=== PATIENT | male | born 1960 | race African-American/Black ===

== ENCOUNTER 2022-08-03 16:35 | Observation (INO) | payer OTHER ==
[2022-08-03] MEDS ORDERED: ONDANSETRON 4 MG/2 ML VIAL ONE (17:15)
[2022-08-03] MEDS ORDERED: MORPHINE 4 MG/ML SYR ONE ×2 (17:15→18:31)
--- NOTE | 2022-08-03 17:15 | RAD REPORT ---
EXAM DESCRIPTION: RAD - Chest Single View - 08/03/2022 5:10 pm CLINICAL HISTORY: CHEST PAIN Chest pain. COMPARISON: No comparisons FINDINGS: Portable technique limits examination quality. Mild interstitial pulmonary edema. The heart is mildly enlarged in size. No displaced fractures. IMPRESSION: Mild CHF.
--- OUTSIDE RECORDS SUMMARY | 2022-08-03 17:18 | XMS REPORT | Continuity of Care Document ---
:1960 Demographics Address [address] [place] [address] Email Address Preferred Language Unknown Marital Status Unknown Holiness Affiliation Unknown Race Unknown Additional Race(s) Unavailable Ethnic Group Unknown Author Organization [facility] t Address [address] [place] [address] [address] [place] [address] Care Team Providers Name Role Phone Unavailable Unavailable Unavailable Problems This patient has no known problems. Allergies, Adverse Reactions, Alerts This patient has no known allergies or adverse reactions. Medications This patient has no known medications. Procedures This patient has no known procedures. Results Test Description Test Time Test Comments Results Result Comments Source NOTE: 2022-01-23 06:02:55 Test Item Value Reference Range Interpretation Comme nts NOTE: (test code = 998) (NOTE) IN ACCORDANCE WITH FEDERAL GUIDELINES REQUIRING ALL VERBAL REQU ESTS FOR LABORATORY TESTS TO BE ACCOMPANIED BY WRITTEN AUTHORIZATION WITHIN 30 DAYS OF THIS RE QUEST, PLEASE SIGN BELOW AND RETURN A COPY OF THIS REPORT BY FAX TO THE LABORATORY SCANNING DEPART [facility] AT [phone]. PHYSICIAN'S SIGNATURE DATE UNLE SS OTHERWISE INDICATED, ALL TESTING PERFORMED [facility] [employer] [address] [place] [id number] MEDICAL SOCIAL WORKER: ARTIE UMANA M.D. CLIA NUMBER [id number] CAP ACCREDITATION N O. [id number] HEMOGLOBIN [id number] 21:50:32 Test Item Value Reference Range Interpretation Comments HEMOGLOBIN A1c (test 6.5 % 4.2-5.6 H AMERIC AN DIABETES code = 06491) ASSOCIATION IDELINES FOR HGB A1C: PREDIABETES/INC REASED RISK . . . . . . . 5.7 -6.4% DIAGNOSIS OF DI ABETES . . . . . . . . . >=6 .5% WITH CONFIRMATION OR APPROPRIATE SYMPTOMS NOTE: ASSAY MAY BE AFFECTED BY HEMOGLOBINOPATH IES (SICKLE CELL ANEMIA, S- C DISEASE, OTHERS) OR FOSTER FICIALLY LOWERED BY DECR EASED RED CELL SURVIVAL ( HEMOLYTIC ANEMIAS, BLOOD LOSS, ETC.). CONSIDER ALTERN ATE TESTING OR LABORATORY C ONSULTATION. CBC W/AUTO DIFF WITH [id number] 05:19:50 Test Item Value Reference Range Interpretation Comments WBC (test code = 6.0 K/UL 3.5-11.0 1001) RBC (test code = 4.52 M/UL 4.50-6.10 1002) HEMOGLOBIN (test code 14.0 G/DL 13.5-17.0 = 1003) HEMATOCRIT (test code 39.4 % 40.0-51.0 L = 1004) MCV (test code = 87.2 fL 80.0-99.0 1005) MCH (test code = 31.0 PG 25.0-33.0 1006) MCHC (test code = 35.5 G/DL 31.0-36.0 1007) RDW (test code = 12.9 % 11.5-15.0 1038) NEUTROPHILS (test 50.5 % code = 1008) LYMPHOCYTES (test 34.5 % code = 1010) MONOCYTES (test code 10.0 % = 1011) EOSINOPHILS (test 4.1 % code = 1012) BASOPHILS (test code 0.7 % = 1013) IMMATURE GRANULOCYTES 0.2 % (test code = 1036) NUCLEATED RBCS (test 0.0 /100 WBC'S See_Comment [Aut omated code = 1065) message] The sy stem which generated this result transmitted reference range : 0.0. The refere nce range was not u sed to interpret th is result as normal/abnormal . PLATELET COUNT (test 234 K/UL 130-400 code = 1015) ABSOLUTE NEUTROPHILS 3.05 K/UL 1.50-7.50 (test code = 1066) ABSOLUTE LYMPHOCYTES 2.08 K/UL 1.00-4.00 (test code = 1067) ABSOLUTE MONOCYTES 0.60 K/UL 0.20-1.00 (test code = 1068) ABSOLUTE EOSINOPHILS 0.25 K/UL 0.00-0.50 (test code = 1040) ABSOLUTE BASOPHILS 0.04 K/UL 0.00-0.20 (test code = 1069) ABS IMMATURE 0.01 K/UL 0.00-0.10 GRANULOCYTES (test code = 1020) ABS NUCLEATED RBCS 0.00 K/UL 0.00-0.11 (test code = 62137) ALBUMIN/CREATININE RATIO, URINE, [id number] 04:35:12 Test Item Value Reference Range Interpretation Comments CREATININE, URINE, 128.5 MG/DL NOT ESTAB RANDOM (test code = 2072) ALBUMIN, URINE, 2.8 MG/DL NOT ESTAB RANDOM (test code = 81648) CALC 22 MG/G <30 Note: ALBUMIN/CREAT, RND Albumin/C reatinine ratio (test code = reference inter xavi 86861) reflects ADA an d NKF guidelines. UNL ESS OTHERWISE INDIC ATED, ALL TESTING PERFORM ED ATCLINICAL PATH [facility] LAB[facility]ATORIES, [facility]. [address] [place] [id number] LABORATORY DIR JOANN: ARTIE UMANA M.D. CLIA NUMBER [id number] [place] [id number] COMPREHENSIVE METABOLIC [id number] 03:21:59 Test Item Value Reference Range Interpretation Comments GLUCOSE (test code = 106 MG/DL 70-99 H 2216) BUN (test code = 20 MG/DL 8-23 2207) CREATININE (test 0.90 MG/DL 0.80-1.40 code = 2214) eGFR (2020 CKD-EPI) 96 ML/MIN/1.73 >60 (test code = 69685) CALC BUN/CREAT (test 22 RATIO 6-28 code = 2235) SODIUM (test code = 142 MEQ/L 291-295 8257) POTASSIUM (test code 4.4 MEQ/L 3.5-5.4 = 2227) CHLORIDE (test code 105 MEQ/L 95-107 = 2215) CARBON DIOXIDE (test 22 MEQ/L 19-31 code = 2206) CALCIUM (test code = 9.6 MG/DL 8.5-10.5 2208) PROTEIN, TOTAL (test 7.4 G/DL 6.1-8.3 code = 2229) ALBUMIN (test code = 4.3 G/DL 3.5-5.2 2200) CALC GLOBULIN (test 3.1 G/DL 1.9-3.7 code = 2240) CALC A/G RATIO (test 1.4 RATIO 1.0-2.6 code = 2234) BILIRUBIN, TOTAL <0.2 MG/DL See_Comment [Automated message] (test code = 220) The syste m which generated this result transmit joann reference range : <=1.2. The refe rence range was not u sed to interpret th is result as normal/abnormal . ALKALINE PHOSPHATASE 63 U/L 40-123 (test code = 2203) AST (test code = 27 U/L 9-50 2217) ALT (test code = 22 U/L 5-50 2218) LIPID [id number] 03:21:59 Test Item Value Reference Range Interpretation Comments CHOLESTEROL (test 207 MG/DL <200 H code = 2210) TRIGLYCERIDES (test 113 MG/DL <150 code = 2232) HDL CHOLESTEROL (test 39 MG/DL >39 L code = 2220) CALC LDL CHOL (test 145 MG/DL <100 H NOTE: C ALCULATED LDL code = 2237) IS BASED ON TY-SMITH METHOD WHICHINCLUDES ADJUSTABLE TRIGLYCERIDE:VL DL CHOLESTEROL RAT IO.THIS FACTOR VARIES B Y MEASURED TRIGLY CERIDE AND NON-HDLCHOL ESTEROL CONCENTRATIONS WITH INCREASED CALCU LATED LDL SEENIN HIGH ER TRIGLYCERIDE OR LOWER NON-HDL SPECIME NS. FOR MOREINFORMATION , SEE CLIENT ANNOUNCE MENT AT [email or web address] RISK RATIO LDL/HDL 3.72 RATIO <3.55 H (test code = 223)
[2022-08-03 17:55] LABS: Absolute Lymphocytes (CBC) 1.4 K/uL (0.7-4.9); Hematocrit 39.7 % (39.6-49.0); Lymphocytes % 11.7 % (15.3-44.8); MPV 8.2 fL (7.6-11.3); RBC Red Blood Cell Count 4.46 M/uL (4.33-5.43)
[2022-08-03 18:15] LABS: Albumin 3.8 g/dL (3.4-5.0); Bilirubin Direct 0.1 mg/dL (0-0.2); Bilirubin Total 0.4 mg/dL (0.2-1.0); Magnesium 1.9 mg/dL (1.8-2.4); Potassium 3.7 mmol/L (3.5-5.1); Protein, Total 7.4 g/dL (6.4-8.2); Troponin High Sensitivity 11.4 pg/mL (<58.9)
--- NOTE | 2022-08-03 19:00 | EDPHYS ---
Physician Documentation [facility] Name: Aaron Apodaca Age: 61 yrs Sex: Male : 1960 Arrival Date: 08/03/2022 Time: 16:47 Bed 27 Private MD: ED Physician Stephanie Mackey HPI: 08/03 17:11 This 61 yrs old Black Male presents to ER via EMS with complaints of Chest Pain. kb 17:11 The patient or guardian reports chest pain that is located primarily in the substernal kb area. Onset: at 04:00. The pain does not radiate. Associated signs and symptoms: Pertinent positives: diaphoresis, shortness of breath. The chest pain is described as a pressure. Duration: The patient or guardian reports a single episode, that is still ongoing. Modifying factors: The symptoms are alleviated by nothing. the symptoms are aggravated by activity. Severity of pain: At its worst the pain was moderate in the emergency department the pain is unchanged. The patient has not experienced similar symptoms in the past. The patient has not recently seen a physician. Historical: - Allergies: 16:51 No Known Allergies; em6 - Home Meds: 16:51 None [Active]; em6 - PMHx: 16:51 None; em6 - PSHx: 16:51 None; em6 - Immunization history:: Adult Immunizations unknown. - Social history:: Smoking status: unknown. ROS: 17:10 Constitutional: Negative for fever, chills, and weight loss. kb 17:10 Cardiovascular: Positive for chest pain, Negative for edema, orthopnea, palpitations, paroxysmal nocturnal dyspnea. 17:10 Respiratory: Positive for shortness of breath. 17:10 All other systems are negative. Exam: 17:10 Head/Face: Normocephalic, atraumatic. ENT: Moist Mucous membranes Cardiovascular: kb Regular rate and rhythm with a normal S1 and S2. No gallops, murmurs, or rubs. No pulse deficits. Respiratory: Respirations even and unlabored. No increased work of breathing. Talking in full sentences Abdomen/GI: Soft, non-tender. No distention Skin: Warm, dry with normal turgor. Normal color. MS/ Extremity: Pulses equal, no cyanosis. Neurovascular intact. Full, normal range of motion. Neuro: Awake and alert, GCS 15, oriented to person, place, time, and situation. Moves all extremities. Normal gait. 17:10 Constitutional: The patient appears alert, awake, uncomfortable. 17:17 ECG was reviewed by the Attending Physician. kb Vital Signs: 16:45 BP 155 / 82; Pulse 79; Resp 20; Pulse Ox 100% on R/A; ld1 16:48 BP 168 / 82; Pulse 81; Resp 22; Temp 98.7; Pulse Ox 100% on 3 lpm NC; Weight 93.89 kg; em6 Height 6 ft. (182.88 cm); Pain 10/10; 17:15 BP 169 / 92; Pulse 82; Resp 24; Pulse Ox 98% on R/A; ld1 17:45 BP 179 / 99; Pulse 75; Resp 14; Pulse Ox 100% on R/A; ld1 18:30 BP 170 / 83; Pulse 90; Resp 14; Pulse Ox 100% on 2 lpm NC; em6 21:52 BP 174 / 95; Pulse 89; Resp 20; Pulse Ox 99% on 2 lpm NC; em6 16:48 Body Mass Index 28.07 (93.89 kg, 182.88 cm) em6 MDM: 16:51 Patient medically screened. kb 17:11 Data reviewed: vital signs, nurses notes. Data interpreted: Pulse oximetry: on room air kb is 100 %. Interpretation: normal. 18:59 Counseling: I had a detailed discussion with the patient and/or guardian regarding: the kb historical points, exam findings, and any diagnostic results supporting the discharge/admit diagnosis, lab results, radiology results, the need for further work-up and treatment in the hospital. Physician consultation: Ana M Ga PA-C was contacted at 18:59, regarding admission, to the telemetry unit. patient's condition. 08/03 16:51 Order name: Basic Metabolic Panel; Complete Time: 18:43 kb 08/03 16:51 Order name: CBC with Diff; Complete Time: 18:43 kb 08/03 16:51 Order name: LFT's; Complete Time: 18:43 kb 08/03 16:51 Order name: Magnesium; Complete Time: 18:43 kb 08/03 16:51 Order name: NT PRO-BNP; Complete Time: 18:43 kb 08/03 16:51 Order name: Troponin HS; Complete Time: 18:43 kb 08/03 19:50 Order name: SARS RAPID; Complete Time: 20:35 kb 08/03 23:20 Order name: Troponin High Sensitivity; Complete Time: 00:09 EDMS 08/04 03:04 Order name: CBC with Automated Diff; Complete Time: 03:38 EDMS 08/04 03:31 Order name: Basic Metabolic Panel; Complete Time: 03:38 EDMS 08/04 03:31 Order name: Troponin High Sensitivity; Complete Time: 03:38 EDMS 08/04 03:31 Order name: Lipid Profile; Complete Time: 03:38 EDMS 08/04 03:31 Order name: Magnesium; Complete Time: 03:38 EDMS 08/04 03:31 Order name: Thyroid Stimulating Hormone; Complete Time: 03:38 EDMS 08/03 16:51 Order name: XRAY Chest (1 view); Complete Time: 17:17 kb 08/03 16:51 Order name: EKG; Complete Time: 16:52 kb 08/03 16:51 Order name: Cardiac monitoring; Complete Time: 17:59 kb 08/03 16:51 Order name: EKG - Nurse/Tech; Complete Time: 16:54 kb 08/03 16:51 Order name: IV Saline Lock; Complete Time: 16:54 kb 08/03 16:51 Order name: Labs collected and sent; Complete Time: 17:59 kb 08/03 16:51 Order name: O2 Per Protocol; Complete Time: 16:54 kb 08/03 16:51 Order name: O2 Sat Monitoring; Complete Time: 16:55 kb 08/03 17:28 Order name: Labs - recollect needed: recollect green and lavender; Complete Time: 17:45 bd EC:17 Rate is 73 beats/min. Rhythm is regular. QRS [place] is Normal. TN interval is prolonged kb at 262 msec. QRS interval is normal at 82 msec. QT interval is normal at 392 msec. Administered Medications: 17:18 Not Given (Physician Discretion): Aspirin Chewable Tablet 324 mg PO once; 81 mg tablets em6 x 4 17:18 Drug: morphine 4 mg Route: IVP; Infused Over: 4 mins; Site: left antecubital; em6 18:00 Follow up: Response: No adverse reaction; RASS: Alert and Calm (0) em6 17:18 Drug: Zofran (Ondansetron) 4 mg Route: IVP; Site: left antecubital; em6 18:00 Follow up: Response: No adverse reaction em6 18:35 Drug: morphine 4 mg Route: IVP; Infused Over: 4 mins; Site: left antecubital; ld1 19:00 Follow up: Response: No adverse reaction; RASS: Alert and Calm (0) em6 21:51 Drug: hydrALAZINE 10 mg Route: IVP; Site: left antecubital; em6 22:11 Follow up: Response: No adverse reaction em6 Disposition Summary: 08/03/22 19:00 Hospitalization Ordered Hospitalization Status: Observation kb Provider: Yordan Saravia Condition: Stable nikunj Problem: new kb Symptoms: are unchanged kb Bed/Room Type: Standard kb Location: Telemetry/MedSurg (observation)(08/04/22 14:11) ja1 Room Assignment: 206(08/04/22 14:11) ja Diagnosis - Chest pain, unspecified kb Forms: - Medication Reconciliation Form kb - SBAR form kb Addendum: 08/06/2022 03:46 STAFF ATTESTATION STATEMENT: I was immediately available onsite in the emergency s d2 department for consultation in the care of this patient. I did not see or examine this patient. Stephanie Mackey MD. Signatures: Dispatcher [employer] EDMS Melvi Murillo, DOCUMENT DESIGN SPECIALIST-C DOCUMENT DESIGN SPECIALIST-CkJudi Cohen Cindy RN RN Renato Collier RN RN ja1 Michelle Peña RN RN Stephanie Elizalde MD MD sd2 Brenda Salazar RN RN em6 Ana M Ga, PA-C PA-C sb4 Corrections: (The following items were deleted from the chart) 08/03 20: 19:00 Telemetry/MedSurg (observation) kb 19:00 kb cg 08/04 14:11 08/03 20:22 [facility] ER HOLD cg ja1 08/04 14:11 08/03 20:22 ERHOLD- cg ja1
--- NOTE | 2022-08-03 19:00 | ER ---
Nurse's Notes [facility] Name: Aaron Apodaca Age: 61 yrs Sex: Male : 1960 Arrival Date: 08/03/2022 Time: 16:47 Bed 27 Private MD: Diagnosis: Chest pain, unspecified Presentation: 08/03 16:48 Chief complaint: EMS states: around 0400 patient started having chest pain. he states em6 pain of 10 out of 10. the pain carlton snot radiate. started an 20 G in left AC gave 0.4 mg of nitroglycerin and 324 mg of aspirin and 300 mL of fluids. no medications. no medical history and no know allergies. Coronavirus screen: At this time, the client does not indicate any symptoms associated with coronavirus-19. Ebola Screen: Patient negative for fever greater than or equal to 101.5 degrees Fahrenheit, and additional compatible Ebola Virus Disease symptoms. Initial Sepsis Screen: Does the patient meet any 2 criteria? No. Patient's initial sepsis screen is negative. Does the patient have a suspected source of infection? No. Patient's initial sepsis screen is negative. Risk Assessment: Do you want to hurt yourself or someone else? Patient reports no desire to harm self or others. Onset of symptoms was August 03, 2022 at 04:00. 16:48 Method Of Arrival: EMS: [facility] em6 16:48 Acuity: ELIAZAR 3 em6 Triage Assessment: 16:51 General: Appears uncomfortable, Behavior is cooperative. Pain: Complains of pain in em6 chest. Cardiovascular: Heart tones present. Historical: - Allergies: 16:51 No Known Allergies; em6 - Home Meds: 16:51 None [Active]; em6 - PMHx: 16:51 None; em6 - PSHx: 16:51 None; em6 - Immunization history:: Adult Immunizations unknown. - Social history:: Smoking status: unknown. Screenin:51 Abuse screen: Denies threats or abuse. Nutritional screening: No deficits noted. em6 Tuberculosis screening: No symptoms or risk factors identified. Fall Risk IV access (20 points). Total Ferguson Fall Scale indicates No Risk (0-24 pts). Assessment: 16:52 Pain: Pain does not radiate. Pain began 08/03/22 0400. em6 16:53 General: Appears uncomfortable, Behavior is cooperative. Pain: Complains of pain in em6 chest Pain does not radiate. Pain currently is 10 out of 10 on a pain scale. Quality of pain is described as pressure, Pain began at 0400 08/03/22. Neuro: Level of Consciousness is awake, alert, obeys commands, Oriented to person, place, time, situation. Cardiovascular: Heart tones present. Respiratory: Airway is patent Respiratory effort is even, unlabored, Respiratory pattern is regular, symmetrical, Breath sounds are clear bilaterally. GI: No signs and/or symptoms were reported involving the gastrointestinal system. : No signs and/or symptoms were reported regarding the genitourinary system. EENT: No signs and/or symptoms were reported regarding the EENT system. Derm: Skin is clammy, diaphoretic. Musculoskeletal: Circulation, motion, and sensation intact. 17:18 Reassessment: notified provider. new order given. Pain: Complains of pain in chest Pain em6 does not radiate. Pain currently is 10 out of 10 on a pain scale. 18:00 Reassessment: No changes from previously documented assessment. Patient and/or family em6 updated on plan of care and expected duration. Pain level reassessed. Patient is alert, oriented x 3, equal unlabored respirations, skin warm/dry/pink. 19:00 Reassessment: No changes from previously documented assessment. Patient and/or family em6 updated on plan of care and expected duration. Pain level reassessed. Patient is alert, oriented x 3, equal unlabored respirations, skin warm/dry/pink. 20:00 Reassessment: No changes from previously documented assessment. Patient and/or family em6 updated on plan of care and expected duration. Pain level reassessed. Patient is alert, oriented x 3, equal unlabored respirations, skin warm/dry/pink. Vital Signs: 16:45 BP 155 / 82; Pulse 79; Resp 20; Pulse Ox 100% on R/A; ld1 16:48 BP 168 / 82; Pulse 81; Resp 22; Temp 98.7; Pulse Ox 100% on 3 lpm NC; Weight 93.89 kg; em6 Height 6 ft. (182.88 cm); Pain 10/10; 17:15 BP 169 / 92; Pulse 82; Resp 24; Pulse Ox 98% on R/A; ld1 17:45 BP 179 / 99; Pulse 75; Resp 14; Pulse Ox 100% on R/A; ld1 18:30 BP 170 / 83; Pulse 90; Resp 14; Pulse Ox 100% on 2 lpm NC; em6 21:52 BP 174 / 95; Pulse 89; Resp 20; Pulse Ox 99% on 2 lpm NC; em6 16:48 Body Mass Index 28.07 (93.89 kg, 182.88 cm) em6 ED Course: 16:47 Patient arrived in ED. em6 16:51 Triage completed. em6 16:51 Melvi Murillo FNP-C is [facility]. kb 16:51 Stephanie Mackey MD is Attending Physician. kb 16:51 Arm band placed on. em6 16:52 engine monitor on. Pulse ox on. NIBP on. em6 16:52 Maintain EMS IV. Dressing intact. Good blood return noted. Site clean \T\ dry. Gauge \T\ em 6 site: 20 L ac. Oxygen administration via nasal cannula \T\ 3L/min. 16:53 Patient has correct armband on for positive identification. Bed in low position. Call em6 light in reach. Side rails up X2. Warm blanket given. 17:11 XRAY Chest (1 view) In Process Unspecified. EDMS 17:12 Brenda Salazar, RN is Primary Nurse. em6 18:59 Yordan Saravia is Hospitalizing Provider. kb Administered Medications: 17:18 Not Given (Physician Discretion): Aspirin Chewable Tablet 324 mg PO once; 81 mg tablets em6 x 4 17:18 Drug: morphine 4 mg Route: IVP; Infused Over: 4 mins; Site: left antecubital; em6 18:00 Follow up: Response: No adverse reaction; RASS: Alert and Calm (0) em6 17:18 Drug: Zofran (Ondansetron) 4 mg Route: IVP; Site: left antecubital; em6 18:00 Follow up: Response: No adverse reaction em6 18:35 Drug: morphine 4 mg Route: IVP; Infused Over: 4 mins; Site: left antecubital; ld1 19:00 Follow up: Response: No adverse reaction; RASS: Alert and Calm (0) em6 21:51 Drug: hydrALAZINE 10 mg Route: IVP; Site: left antecubital; em6 22:11 Follow up: Response: No adverse reaction em6 Outcome: 19:00 Decision to Hospitalize by Provider. 08/04 17:28 Patient left the ED. ss Signatures: Dispatcher [employer] EDMS Melvi Murillo FNP-C FNP-Ckb Smirch, Shelby, RN RN Michelle Peña RN RN ld1 Brenda Salazar RN RN em6
--- NOTE | 2022-08-03 20:05 | P.HP ---
Certification for Inpatient Patient admitted to: Observation With expected LOS: <2 Midnights Patient will require the following post-hospital care: None Practitioner: I am a practitioner with admitting privileges, knowledge of patient current condition, hospital course, and medical plan of care. Services: Services provided to patient in accordance with Admission requirements found in Title 42 Section 412.3 of the Code of Federal Regulations Patient History Date of Service: 08/03/22 Reason for admission: Chest Pain History of Present Illness: Patient is a 61-year-old male with no medical problems who presented to the ED via EMS with complaints of chest pain. Patient reports that the pain began at 4 AM and was associated with diaphoresis and shortness of breath. He denies any radiation. Reports the pain is substernal. EMS administered 0.4 nitroglycerin and 324 mg aspirin. He reports continued pain in the ED. he denies any prior episodes or cardiac history. EKG negative for ST changes. His troponin was within normal limits. Chest x-ray negative. He was given morphine and Zofran for pain. Other labs within normal limits. ED provider wishes admit patient for observation. Allergies No Known Allergies Allergy (Unverified 08/03/22 20:21) Home medications list reviewed: Yes (NA) - Past Medical/Surgical History Diabetic: No -: Pre-Diabetes -: Left sided abdominal debriedment Psychosocial/ Personal History: Patient lives at home with his family. - Family History Father -: Heart disease - Social History Smoking Status: Never smoker Alcohol use: Yes CD- Drugs: No Caffeine use: Yes Place of Residence: Home Review of Systems General: Sweats Respiratory: Shortness of Breath Cardiovascular: Chest Pain Physical Examination - Physical Exam General: Alert, In no apparent distress HEENT: Atraumatic, PERRLA, EOMI, Sclerae nonicteric Neck: Supple, 2+ carotid pulse no bruit, No LAD, Without JVD or thyroid abnormality Respiratory: Clear to auscultation bilaterally, Normal air movement Cardiovascular: Regular rate/rhythm, Normal S1 S2 Gastrointestinal: Normal bowel sounds, No tenderness Musculoskeletal: No tenderness Integumentary: No rashes Neurological: Normal speech, Normal strength at 5/5 x4 extr, Normal tone, Normal affect - Studies Laboratory Data (last 24 hrs) 08/03/22 17:37: WBC 11.80 H, Hgb 13.3 L, Hct 39.7, Plt Count 217 08/03/22 17:37: Sodium 134 L, Potassium 3.7, BUN 17, Creatinine 1.00, Glucose 135 H, Magnesium 1.9, Total Bilirubin 0.4, AST 20, ALT 24, Alkaline Phosphatase 66 Assessment and Plan - Problems (Diagnosis) (1) Chest pain Current Visit: Yes Status: Acute Qualifiers: Chest pain type: unspecified Qualified Code(s): R07.9 - Chest pain, unspecified (2) Hypertension Current Visit: Yes Status: Acute Qualifiers: Hypertension type: primary hypertension Qualified Code(s): I10 - Essential (primary) hypertension - Plan -Patient is admitted for observation -Initial troponin negative. Trend -Cardiology consult -Echo ordered -Patient has been hypertensive. Does not take anything daily. -Aspirin and atorvastatin daily -Lipid panel and TSH pending -Monitor and replete electrolytes per protocol -Reconcile and continue home medications -Lovenox for VTE ppx -Full code Discharge Plan: Home Plan to discharge in: 24 Hours - Advance Directives Does patient have a Living Will: No Does patient have a Durable POA for Healthcare: No - Code Status/Comfort Care Code Status Assessed: Yes (Full) Critical Care: No Time Spent Managing Pts Care (In Minutes): 50
[2022-08-03] MEDS ORDERED: ONDANSETRON 4 MG/2 ML VIAL IV PRN (20:22)
[2022-08-03] MEDS ORDERED: ACETAMINOPHEN 500 MG TAB PO PRN (20:22)
[2022-08-03] MEDS ORDERED: HYDROCODONE/APAP 7.5/325 MG TAB PO PRN (20:22)
[2022-08-03 20:31] LABS: SARS-CoV-2 Antigen Rapid Res Negative (Negative)
[2022-08-03] MEDS: ATORVASTATIN 40 MG TAB PO SCH (21:00)
[2022-08-03 21:07] VITALS: O2SAT 100; BMI 28.0
[2022-08-03] MEDS ORDERED: HYDRALAZINE HCL 20 MG/ML VIAL ONE (21:23)
[2022-08-03] MEDS ORDERED: HYDROCODONE/APAP 7.5/325 MG TAB ONE (21:24)
[2022-08-03] MEDS ORDERED: ATORVASTATIN 20 MG TAB ONE (21:25)
[2022-08-04 02:58] LABS: Absolute Lymphocytes (CBC) 1.3 K/uL (0.7-4.9); Hematocrit 41.7 % (39.6-49.0); Lymphocytes % 11.7 % (15.3-44.8); MCV 89.1 fL (80-100); MPV 8.5 fL (7.6-11.3); RBC Red Blood Cell Count 4.68 M/uL (4.33-5.43)
[2022-08-04 03:31] LABS: Magnesium 1.9 mg/dL (1.8-2.4); Potassium 4.1 mmol/L (3.5-5.1); Thyroid Stimulating Hormone 0.502 uIU/mL (0.360-3.740); Troponin High Sensitivity 22.3 pg/mL (<58.9)
[2022-08-04] MEDS ORDERED: INFLUENZA VACCINE (for 6+ mo) 0.5 ML DOSE IMVAC ONE (08:00)
[2022-08-04] MEDS ORDERED: ENOXAPARIN 40 MG/0.4 ML SQ ONE (08:26)
[2022-08-04] MEDS ORDERED: ASPIRIN EC 81 MG TAB PO ONE (08:26)
[2022-08-04] MEDS: ASPIRIN EC 81 MG TAB PO SCH (08:28)
[2022-08-04] MEDS: ENOXAPARIN 40 MG/0.4 ML SQ SCH (08:28)
--- NOTE | 2022-08-04 13:54 | ECHO ---
HEIGHT: 6 ft 0 in WEIGHT: 207 lb 0 oz DATE OF STUDY: 08/04/[address]: Ana M Ga 2-DIMENSIONAL: YES M.MODE: YES DOPPLER: YES COLOR FLOW: YES TDS: NO PORTABLE: YES DEFINITY: NO BUBBLE STUDY: NO DIAGNOSIS: CHEST PAIN CARDIAC HISTORY: CATHERIZATION: SURGERY: PROSTHETIC VALVE: PACEMAKER: MEASUREMENTS (cm) DIASTOLIC (NORMALS) SYSTOLIC (NORMALS) IVSd 1.4 (0.6-1.2) LA Diam 2.9 (1.9-4.0) LVEF 80% LVIDd 3.7 (3.5-5.7) LVIDs 1.7 (2.0-3.5) %FS 55% LVPWd 1.2 (0.6-1.2) Ao Diam 2.6 (2.0-3.7) 2 DIMENSIONAL ASSESSMENT: RIGHT ATRIUM: NORMAL LEFT ATRIUM: NORMAL RIGHT VENTRICLE: NORMAL LEFT VENTRICLE: NORMAL TRICUSPID VALVE: MILD TRICUSPID REGURGITATION MITRAL VALVE: NORMAL PULMONIC VALVE: NORMAL AORTIC VALVE: NORMAL PERICARDIAL EFFUSION: NONE AORTIC ROOT: NORMAL LEFT VENTRICULAR WALL MOTION: HYPERDYNAMIC LEFT VENTRICLE; NORMAL WALL MOTION. DOPPLER/COLOR FLOW: MILD TRICUSPID REGURGITATION. 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 NORMAL WALL MOTION. MILD TRICUSPID REGURGITATION. TECHNOLOGIST: CLEMENTINA BILL
--- NOTE | 2022-08-04 14:03 | EKG ---
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
--- NOTE | 2022-08-04 14:03 | EKG ---
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
[2022-08-04] MEDS ORDERED: KETOROLAC 30 MG/ML INJ IV PRN (16:21)
[2022-08-04] MEDS ORDERED: KETOROLAC 30 MG/ML INJ ONE (16:36)
--- NOTE | 2022-08-04 18:40 | P.PN ---
Subjective Date of Service: 08/04/22 Chief Complaint: Chest Pain Patient complaining of intermittent chest pain. He describes a noncardiac sternal chest pain worse with movement and reproducible by palpation. He denies any cough or shortness of breath. Physical Examination - Vital Signs Temperature: 98.1 F Blood Pressure: 145/73 Pulse: 73 Respirations: 18 Pulse Ox (%): 97 Assessment And Plan - Current Problems (Diagnosis) (1) Chest pain Current Visit: Yes Status: Acute Qualifiers: Chest pain type: unspecified Qualified Code(s): R07.9 - Chest pain, unspecified (2) Hypertension Current Visit: Yes Status: Acute Qualifiers: Hypertension type: primary hypertension Qualified Code(s): I10 - Essential (primary) hypertension - Plan Physical Exam General: Alert, In no apparent distress Neck: Supple, no JVD elevation. Respiratory: Clear to auscultation bilaterally, Normal air movement Cardiovascular: Regular rate/rhythm, Normal S1 S2 Gastrointestinal: Normal bowel sounds, No tenderness Musculoskeletal: No tenderness Integumentary: No rashes Neurological: Normal speech, no focal motor deficit. Plan: Troponin trended negative. Echocardiogram shows hyperdynamic heart with EF of 80% Blood pressure is elevated. Start metoprolol. Aspirin. Statin. Awaiting cardiology input. Symptom management-pain medications as needed.
--- NOTE | 2022-08-04 20:31 | RAD REPORT ---
EXAM DESCRIPTION: CT - Chest For Pe Angio - 08/04/2022 8:17 pm CLINICAL HISTORY: Chest pain COMPARISON: None. TECHNIQUE: Dynamically enhanced axial 3 mm thick images of the chest were obtained during administra tion of <100> mL Isovue 370 IV contrast. Coronal and oblique reconstruction images were generated and reviewed. Exam utilizes a protocol for optimal evaluation of pulmonary arterial tree. Maximum intensity projections 3D imaging was utilized All CT scans are performed using dose optimization technique as appropriate and may include automated exposure control or mA/KV adjustment according to patient size. FINDINGS: A pulmonary embolus is not seen. A thoracic aortic aneurysm is not noted. A pleural effusion is not seen. A pericardial effusion is not seen. A lung consolidation is not present. Mild left lower lobe atelectasis. Hepatic cysts. The largest measures 5 centimeters IMPRESSION: Negative for a pulmonary embolism.
[2022-08-04] MEDS: ATORVASTATIN 40 MG TAB PO SCH (21:03)
--- NOTE | 2022-08-04 22:25 | CON ---
Date of Consultation: 08/04/2022 Reason For Consultation: Chest pain. History Of Present Illness: This is a 61-year-old male with no medical history who presented with ch est pain, sharp, that started in the retrosternal area with shortness of breath and he said it is wit h each deep breath. Denies having any nausea, vomiting, or shortness of breath. No dysuria, polyuri a, or urgency. No other complaints and the pain started yesterday. Past Medical History: None. Medications: None. Allergies: NO KNOWN DRUG ALLERGIES. Family History: No premature coronary artery disease or cancer. Social History: Does not smoke or drink. Does not use any drugs. Review of Systems: All systems reviewed and they were negative except for what is mentioned in HPI. Physical Examination: Vital Signs: Temperature is 98.1, pulse 73, breathing at 18, blood pressure is 145/73, saturating 97 % on room air. General: A pleasant middle-aged male, in no apparent distress. Head And Neck: Pupils are equal and reactive to light. Intact eye movements. No JVD. No cervical lymphadenopathy. Neck is supple. Thyroid is not enlarged. Lungs: Clear to auscultation bilaterally. No rhonchi, wheezing, or crackles. No accessory muscle u se. Heart: Regular rate and rhythm. No extra sounds. Abdomen: Soft, nontender. Bowel sounds positive. No organomegaly. No masses or hernia. No rigidi ty or rebound. Extremities: No edema, clubbing, or cyanosis. Intact pulses. Skin: No rash. Neuro: Alert, awake, oriented x3. No acute focal deficits appreciated. Investigations: BUN is 18, creatinine 1.1. Troponins x3 are negative. Hemoglobin is 14.0. Assessment And Recommendations: 1.Chest pain. Etiology is not clear. Pain is with deep breathing. I recommend CTA of the lungs, p ulmonary embolism protocol. Rule out pulmonary embolism versus an infection. His troponins are nega tive. If the CTA is negative, then I will plan to see the patient as an outpatient for cardiac stres s test and an echocardiogram. 2.Hypertension. Continue home medications. Adjust for better blood pressure control. SR/MODL Voice ID: [id number] Report ID: [id number]
[2022-08-05] MEDS ORDERED: METOPROLOL TAR 25 MG TAB PO SCH (06:00)
[2022-08-05 06:30] LABS: Urine Bilirubin NEGATIVE (Negative); Urine Blood Negative (Negative); Urine Clarity Clear (Clear); Urine Color Light-Yellow (Yellow); Urine Glucose 4+ (Negative); Urine Mucus Slight /HPF (None Seen); Urine Protein TRACE (Negative); Urine RBC <5 /HPF (None Seen); Urine Urobilinogen 1+ (Normal)
[2022-08-05 06:33] LABS: Specific Gravity > 1.030 (1.005-1.030)
[2022-08-05] MEDS: ENOXAPARIN 40 MG/0.4 ML SQ SCH (09:00)
[2022-08-05] MEDS: ASPIRIN EC 81 MG TAB PO SCH (09:03)
[2022-08-05 09:48] VITALS: BP 146/80; TEMP 97.8
--- NOTE | 2022-08-05 10:04 | P.DS ---
Admission Date: 08/03/22 Discharge Date: 08/05/22 Disposition: ROUTINE DISCHARGE Discharge Condition: FAIR Reason for Admission: Chest Pain - Problems (1) Chest pain Current Visit: Yes Status: Acute Qualifiers: Chest pain type: unspecified Qualified Code(s): R07.9 - Chest pain, unspecified (2) Hypertension Current Visit: Yes Status: Acute Qualifiers: Hypertension type: primary hypertension Qualified Code(s): I10 - Essential (primary) hypertension Brief History of Present Illness: Patient is a 61-year-old male with borderline diabetes who presented to the ED via EMS with complaints of substernal chest pain. Patient reported that the pain was associated with diaphoresis and shortness of breath. He denied any radiation. EMS administered 0.4 nitroglycerin and 324 mg aspirin. He reports continued pain in the ED. He denied any prior episodes or cardiac history. EKG negative for ST changes. His troponin was within normal limits. Chest x-ray negative. He was given morphine and Zofran for pain. Other labs within normal limits. Patient placed under observation for ACS rule out. Hospital Course: Troponin trended negative. Patient chest pain appears noncardiac, reproducible by palpation and worse with deep breathing. CTA thorax done was negative for pulm embolism. I did demonstrate hepatic cyst. Echocardiogram done showed hyperdynamic heart with EF of 80%. Patient blood sugar noted to be running in the 200s. He stated he stopped taking it and was managing his blood sugar with diet. ACS ruled out. Patient deemed stable for discharge. He is prescribed baby aspirin. He is also prescribed low-dose Amaryl for blood sugar control. Patient will follow up with Dr. Perez as outpatient for stress test. Vital Signs/Physical Exam: Temp Pulse Resp BP Pulse Ox 97.8 F 61 18 146/80 H 97 08/05/22 08:00 08/05/22 08:00 08/05/22 08:00 08/05/22 08:00 08/05/22 08:00 General: Alert, In no apparent distress, Oriented x3 HEENT: Mucous membr. moist/pink Neck: Supple, JVD not distended Respiratory: Clear to auscultation bilaterally, Normal air movement Cardiovascular: No edema, Regular rate/rhythm, Normal S1 S2 Gastrointestinal: Normal bowel sounds, Soft and benign, Non-distended, No tenderness Musculoskeletal: No swelling Integumentary: No rashes, No cyanosis Neurological: Normal strength at 5/5 x4 extr Laboratory Data at Discharge: WBC 11.40 K/uL (4.3-10.9) H 08/04/22 02:32 Hgb 14.0 g/dL (13.6-17.9) 08/04/22 02:32 Hct 41.7 % (39.6-49.0) 08/04/22 02:32 Plt Count 238 K/uL (152-406) 08/04/22 02:32 Sodium 135 mmol/L (136-145) L 08/04/22 02:32 Potassium 4.1 mmol/L (3.5-5.1) 08/04/22 02:32 BUN 18 mg/dL (7-18) 08/04/22 02:32 Creatinine 1.17 mg/dL (0.55-1.3) 08/04/22 02:32 Glucose 233 mg/dL (74-106) H 08/04/22 02:32 Magnesium 1.9 mg/dL (1.8-2.4) 08/04/22 02:32 Total Bilirubin 0.4 mg/dL (0.2-1.0) 08/03/22 17:37 AST 20 U/L (15-37) 08/03/22 17:37 ALT 24 U/L (12-78) 08/03/22 17:37 Alkaline Phosphatase 66 U/L (45-117) 08/03/22 17:37 Triglycerides 83 mg/dL (<150) 08/04/22 02:32 Cholesterol 182 mg/dL (<200) 08/04/22 02:32 HDL Cholesterol 52 mg/dL (40-60) 08/04/22 02:32 Cholesterol/HDL Ratio 3.50 08/04/22 02:32 Home Medications: Amlodipine [Norvasc*] 10 mg PO DAILY #30 tab 08/05/22 Aspirin [Aspirin EC 81 MG] 81 mg PO DAILY #30 tab 08/05/22 Atorvastatin Calcium [Lipitor] 40 mg PO BEDTIME #30 tab 08/05/22 Glimepiride [Amaryl] 2 mg PO DAILY #30 tab 08/05/22 New Medications: Glimepiride [Amaryl] 2 mg PO DAILY #30 tab Aspirin [Aspirin EC 81 MG] 81 mg PO DAILY #30 tab Atorvastatin Calcium [Lipitor] 40 mg PO BEDTIME #30 tab Amlodipine [Norvasc*] 10 mg PO DAILY #30 tab Diet: ADA Activity: Ad mona Followup: NONE,NONE [Primary Care Provider] - (Call to schedule appointment, list provided) Porfirio Perez MD [ACTIVE - CAN ADMIT] - 1-2 Weeks (Call to schedule appointment :For arrangement for stress test.)
--- NOTE | 2022-08-05 14:46 | PN ---
Date of Progress Note: 08/05/2022 Subjective: Seen by bedside. Doing clinically well. Does not have any chest pain, shortness of magdaleno ath, orthopnea, cough. No nausea, vomiting, diarrhea. No abdominal pain. No dysuria, polyuria, or urinary urgency. The chest pain is completely resolved. CTA PE protocol was done and it was negativ e. Cardiac enzymes have been negative. Review of Systems: No chest pain, shortness of breath, orthopnea, cough. All other systems reviewed and they were negat jerilyn. Physical Examination: Vital Signs: Temperature is 97.8, pulse 61, breathing at 18, blood pressure is 146/80, saturating 97 % on room air. General: Pleasant middle-aged male, in no apparent distress. Head and Neck: Pupils are equal, reactive to light. Intact eye movements. No JVD. No cervical lym phadenopathy. Neck is supple. Thyroid is not enlarged. Lungs: Clear to auscultation bilaterally. No rhonchi, wheezing, or crackles. No accessory muscle u se. Heart: Regular rate and rhythm. No extra sounds. Abdomen: Soft, nontender. Bowel sounds positive. No organomegaly. No masses or hernia. No rigidi ty or rebound. Extremities: No clubbing or cyanosis. Intact pulses. Skin: No rash. Neurologic: Alert, awake, oriented x3. No acute focal deficits appreciated. Investigations: Troponins x3 are negative. BUN is 18, creatinine 1.1. Hemoglobin is 14. Assessment And Recommendations: 1.Chest pain. Did a CTA of the lungs. PE protocol was negative and cardiac enzymes are negative. The patient can be released from Cardiology standpoint on baby aspirin 81 mg daily. Plan for stress test as an outpatient and an echocardiogram. 2.Hypertension. Blood pressure is borderline. Continue current cardiac medications and encourage t o follow a low-salt diet. SR/MODL Voice ID: [id number] Report ID: [id number]
== END 2022-08-05 11:45 | disposition home or self-care (01) ==
LOC: ER 16:35 → ERHOLD 20:02 → 2ND 08-04 16:38
PROVIDERS: ADMIT Internal Medicine; ATTEND Internal Medicine
DX: R07.9 Chest pain, unspecified (principal); I10 Essential (primary) hypertension; Z83.3 Family history of diabetes mellitus; Z82.49 Family history of ischemic heart disease and other diseases of the circulatory system; Z20.822 Contact with and (suspected) exposure to COVID-19
CPT/HCPCS: 93005 ×2; 93306; 85025 ×2; 81001; 80048 ×2; 36415; 83735 ×2; 80061; 80076; 84443; 84484 ×3; 83880; 71275; 71045; 96375; 96374; 99285; 87811; Q9967; J0360; J1650; J2405; G0378 ×4